=== PATIENT | female | born 1990 | race Caucasian/White ===

== ENCOUNTER 2025-08-20 14:43 | Outpatient (CLI) | payer BC, SELFPAY | END 2025-08-20 14:44 | disposition home or self-care (01) | PROVIDERS: PCP Nurse Practitioner Family; Visit Provider Nurse Practitioner Family | DX: M25.50 Pain in unspecified joint (principal); R20.2 Paresthesia of skin | CPT/HCPCS: 80053; 82607; 82746; 83735; 84100; 84443; 84550; 85025; 85651; 86038; 86140; 86200; 86431; 86812 ==